=== PATIENT | male | born 1940 | race Caucasian/White ===

== ENCOUNTER 2021-04-05 10:03 | Emergency (ER) | payer OTHER ==
[2021-04-05] MEDS ORDERED: FENTANYL CITR 100 MCG/2 ML ONE ×2 (10:30→11:29)
--- NOTE | 2021-04-05 12:17 | RAD REPORT ---
EXAM DESCRIPTION: RAD - Hip Left 2 View - 04/05/2021 11:25 am CLINICAL HISTORY: Left hip pain status post injury FINDINGS: Avulsion fracture involves the lesser trochanter the left femur. An intertrochanteric fra cture extends into the greater trochanter with varus angulation present at the fracture site. No dislocation Plate and screws affix an old mid left femoral fracture
--- NOTE | 2021-04-05 12:17 | RAD REPORT ---
EXAM DESCRIPTION: RAD - Femur Left - 04/05/2021 11:25 am CLINICAL HISTORY: Left leg pain FINDINGS: Avulsion fracture involves the lesser trochanter the left femur. An intertrochanteric fracture exten ds into the greater trochanter with varus angulation present at the fracture site. No dislocation Plate and screws affix an old mid left femoral fracture The patella appears to be dislocated medially. If clinically indicated dedicated plain films of the l eft knee could be obtained for further evaluation .
[2021-04-05 12:58] LABS: Absolute Lymphocytes (CBC) 0.8 K/uL (0.7-4.9); Basophils % 0.4 % (0-1.3); Hematocrit 39.2 % (39.6-49.0); Lymphocytes % 5.6 % (15.3-44.8); RBC Red Blood Cell Count 4.23 M/uL (4.33-5.43)
[2021-04-05 13:02] LABS: Protime INR 0.97
[2021-04-05 13:08] LABS: BUN Blood Urea Nitrogen 9 mg/dL (7-18); Bicarbonate 26 mmol/L (21-32); Glucose Level 115 mg/dL (74-106); Potassium 3.6 mmol/L (3.5-5.1); Sodium Level 139 mmol/L (136-145)
[2021-04-05] MEDS ORDERED: MORPHINE 4 MG/ML SYR ONE ×2 (13:44→16:21)
--- NOTE | 2021-04-05 14:47 | RAD REPORT ---
EXAM DESCRIPTION: RAD - Chest Single View - 04/05/2021 2:42 pm CLINICAL HISTORY: preop COMPARISON: CHEST SINGLE VIEW dated 12/28/2014 FINDINGS: Lines: None. Lungs: No evidence of edema or pneumonia. Pleural: No significant pleural effusions or pneumothorax. Cardiac: The heart size is within normal limits. Bones: No acute fractures. Other: IMPRESSION: No acute cardiopulmonary disease.
--- NOTE | 2021-04-05 16:02 | EDPHYS ---
Physician Documentation [facility] Name: Dhaval Huertas Age: 80 yrs Sex: Male : 1940 Arrival Date: 04/05/2021 Time: 10:11 Bed 6 Private MD: ED Physician Yifan Phoenix HPI: 04/05 14:49 This 80 yrs old Male presents to ER via EMS with complaints of Hip Pain. kb 14:55 The patient or guardian reports decreased range of motion, an injury, pain. that kb occurred at home, sustained from a fall, while walking, There is no obvious deformity, The patient is able to ambulate with assistance. The patient is able to bear partial body weight. There is no radiation of the patient's discomfort. The complaints affect the left hip. Onset: The symptoms/episode began/occurred yesterday. Modifying factors: The symptoms are alleviated by nothing, the symptoms are aggravated by nothing. Associated signs and symptoms: Loss of consciousness: the patient experienced no loss of consciousness, Pertinent positives: None. Severity of symptoms: At their worst the symptoms were moderate, in the emergency department the symptoms are unchanged. The patient has not experienced similar symptoms in the past. The patient has not recently seen a physician. Pt fell in restroom yesterday and has had left hip pain since then. . Historical: - Allergies: 10:23 No Known Drug Allergies; tw2 - Home Meds: 10:23 amlodipine 10 mg tab 1 tab once daily [Active]; tramadol 50 mg Oral tab 1 tab every 4 tw2 hours [Active]; tamsulosin 0.4 mg oral cap 1 cap once daily [Active]; bupropion HCl 300 mg Oral Tb24 1 tab once daily [Active]; - PMHx: 10:23 Hypertensive disorder; tw2 - Immunization history:: Adult Immunizations. - Social history:: Smoking status: Patient reports the use of cigarette tobacco products, cigars, Patient uses alcohol, on a daily basis. "3 beers a day". ROS: 14:54 Constitutional: Negative for fever, chills, and weight loss. kb 14:54 MS/extremity: Positive for pain, of the left hip. 14:54 All other systems are negative. Exam: 14:54 Constitutional: This is a well developed, well nourished patient who is awake, alert, kb and in no acute distress. Head/Face: Normocephalic, atraumatic. ENT: Moist Mucous membranes Respiratory: Respirations even and unlabored. No increased work of breathing. Talking in full sentences Abdomen/GI: Soft, non-tender. No distention Back: No spinal tenderness. No costovertebral tenderness. Full range of motion. Skin: Warm, dry with normal turgor. Normal color. Neuro: Awake and alert, GCS 15, oriented to person, place, time, and situation. Moves all extremities. Normal gait. Psych: Awake, alert, with orientation to person, place and time. Behavior, mood, and affect are within normal limits. 14:54 Musculoskeletal/extremity: Extremities: grossly normal except: noted in the left hip: pain, tenderness, ROM: limited active range of motion, in the left hip, Circulation is intact in all extremities. Sensation intact. Weight bearing: can bear weight with assistance only, uses crutches. 15:56 ECG was reviewed by the Attending Physician. kb Vital Signs: 10:22 BP 136 / 83; Pulse 86; Resp 17; Temp 99(O); Pulse Ox 98% on R/A; Weight 79.38 kg (R); tw2 Height 6 ft. 3 in. (190.50 cm); Pain 5/10; 10:48 BP 117 / 74; Pulse 89; Resp 17; Pulse Ox 100% ; Pain 2/10; jh6 11:56 BP 147 / 87; Pulse 89; Resp 17; Pulse Ox 98% on R/A; tw2 13:14 BP 159 / 83; Pulse 78; Resp 18; Pulse Ox 96% on R/A; Pain 6/10; jh6 14:43 BP 129 / 78; Pulse 84; Resp 17; Pulse Ox 95% on R/A; tw2 16:00 BP 124 / 78; Pulse 85; Resp 17; Pulse Ox 95% on R/A; tw2 17:24 BP 131 / 78; Pulse 83; Resp 18; Pulse Ox 98% ; Pain 6/10; jh6 10:22 Body Mass Index 21.87 (79.38 kg, 190.50 cm) tw2 MDM: 10:17 Patient medically screened. kb 12:41 Physician consultation: Willie Wilson MD was called at 12:30, voicemail left. kb 13:33 Data reviewed: vital signs, nurses notes. Data interpreted: Pulse oximetry: on room air kb is 96 %. Interpretation: normal. Counseling: I had a detailed discussion with the patient and/or guardian regarding: the historical points, exam findings, and any diagnostic results supporting the discharge/admit diagnosis, radiology results, the need for further work-up and treatment in the hospital. Physician consultation: Willie Wilson MD was called at 13:25, . 13:36 Physician consultation: Wlilie Wilson MD was contacted at 13:36, regarding consult, kb patient's condition, after a discussion of the case, a recommendation for transfer for higher level of care is made. 14:57 Counseling: I had a detailed discussion with the patient and/or guardian regarding: the kb need to transfer to another facility. 16:00 ED course: Dr Garcia, ortho at [facility], accepts pt for transfer. kb 12 12:28 Order name: CBC with Diff; Complete Time: 13:05 kb 04/05 12:28 Order name: Basic Metabolic Panel; Complete Time: 13:09 kb 04/05 10:17 Order name: Hip Left 2 View XRAY; Complete Time: 12:18 kb 04/05 12:28 Order name: Protime (+inr); Complete Time: 13:05 kb 1208 12:28 Order name: Ptt, Activated; Complete Time: 13:05 kb 1208 12:53 Order name: COVID-19 SARS RT PCR (Document "Date of Onset" if Symptomatic); Complete iw Time: 14:07 04/05 10:17 Order name: Femur Left XRAY; Complete Time: 12:18 kb 04/05 12:28 Order name: EKG; Complete Time: 12:29 kb 04/05 12:28 Order name: EKG - Nurse/Tech; Complete Time: 12:53 kb 04/05 12:28 Order name: Chest Single View XRAY; Complete Time: 14:49 kb EC:56 Rate is 84 beats/min. Rhythm is regular. Left axis deviation noted. VT interval is kb normal at 182 msec. QRS interval is normal at 104 msec. QT interval is normal at 364 msec. Administered Medications: 10:34 Drug: fentaNYL (PF) 25 mcg Route: IVP; Site: right antecubital; 6 10:40 Follow up: Response: Pain is decreased jh6 11:21 Follow up: Response: Pain is decreased jh6 11:32 Drug: fentaNYL (PF) 25 mcg Route: IVP; Site: right antecubital; jh6 11:42 Follow up: Response: Pain is decreased jh6 13:47 Drug: morphine 4 mg Route: IVP; Site: right antecubital; jh6 16:22 Follow up: Response: No adverse reaction; Pain is unchanged, physician notified tw2 16:26 Drug: morphine 4 mg {Note: RASS 0.} Route: IVP; Site: right antecubital; tw2 17:26 Follow up: Response: Pain is decreased jh6 Disposition: 22:37 Co-signature as Attending Physician, Yifan Phoenix MD I agree with the assessment and sp3 plan of care. Disposition Summary: 04/05/21 16:02 Transfer Ordered Transfer Location: [facility] Reason: Higher level of care kb Condition: Stable kb Problem: new kb Symptoms: are unchanged kb Accepting Physician: Radha(04/05/21 17:26) jh6 Diagnosis - Intertrochanteric fracture of left femur kb Forms: - Medication Reconciliation Form kb - SBAR form kb Signatures: Dispatcher [employer] EDMS Diane Eagle FNP-C FNP-Iliana Mcallister RN RN tw2 Yifan Phoenix MD MD sp3 Lori Gaitan RN RN jh6 Corrections: (The following items were deleted from the chart) 13:38 13:36 Physician consultation: Willie Wilson MD was contacted at 13:36, regarding kb consult, patient's condition, and will see patient in ED, kb 14:56 14:54 Musculoskeletal/extremity: Extremities: grossly normal except: noted in the left kb hip: pain, tenderness, ROM: limited active range of motion, in the left hip, Circulation is intact in all extremities. Sensation intact. Weight bearing: is unable to bear weight, kb 14:57 14:55 that occurred at home, sustained from a fall, while walking, There is no obvious kb deformity, The patient is not able to ambulate. Patient is not able to bear weight. There is no radiation of the patient's discomfort. kb 16:02 16:00 ED course: Dr Maya, ortho at [facility], accepts pt for transfer. kb kb 17:26 16:02 Radha kb jh6
--- NOTE | 2021-04-05 16:02 | ER ---
Nurse's Notes [facility] Name: Dhaval Huertas Age: 80 yrs Sex: Male : 1940 Arrival Date: 04/05/2021 Time: 10:11 Bed 6 Private MD: Diagnosis: Intertrochanteric fracture of left femur Presentation: 04/05 10:16 Chief complaint: EMS states: left hip pain after falling in bathroom yesterday. iw Coronavirus screen: At this time, the client does not indicate any symptoms associated with coronavirus-19. Ebola Screen: Patient negative for fever greater than or equal to 101.5 degrees Fahrenheit, and additional compatible Ebola Virus Disease symptoms Patient denies exposure to infectious person. Patient denies travel to an Ebola-affected area in the 21 days before illness onset. No symptoms or risks identified at this time. Initial Sepsis Screen: Does the patient meet any 2 criteria? No. Patient's initial sepsis screen is negative. Does the patient have a suspected source of infection? No. Patient's initial sepsis screen is negative. Risk Assessment: Do you want to hurt yourself or someone else? Patient reports no desire to harm self or others. Onset of symptoms was April 04, 2021. 10:16 Method Of Arrival: EMS: [id number] 10:16 Acuity: JOAQUIN 3 iw Triage Assessment: 10:16 General: Appears in no apparent distress. uncomfortable, Behavior is calm, cooperative, tw2 appropriate for age. Pain: Complains of pain in left leg. Neuro: Level of Consciousness is awake, alert, obeys commands, Oriented to person, place, time, situation. Cardiovascular: Patient's skin is warm and dry. Respiratory: Airway is patent Respiratory effort is even, unlabored, Respiratory pattern is regular. Musculoskeletal: pt reports RIGHT leg length shortened d/t previous condition. pt uses crutch for ambulation. pt c/o pain to LEFT hip and leg today. Historical: - Allergies: 10:23 No Known Drug Allergies; tw2 - Home Meds: 10:23 amlodipine 10 mg tab 1 tab once daily [Active]; tramadol 50 mg Oral tab 1 tab every 4 tw2 hours [Active]; tamsulosin 0.4 mg oral cap 1 cap once daily [Active]; bupropion HCl 300 mg Oral Tb24 1 tab once daily [Active]; - PMHx: 10:23 Hypertensive disorder; tw2 - Immunization history:: Adult Immunizations. - Social history:: Smoking status: Patient reports the use of cigarette tobacco products, cigars, Patient uses alcohol, on a daily basis. "3 beers a day". Screenin:21 Abuse screen: Denies threats or abuse. Nutritional screening: No deficits noted. tw2 Tuberculosis screening: No symptoms or risk factors identified. Fall Risk Ambulatory Aid- Crutches/Cane/Walker (15 pts). Assessment: 10:31 Reassessment: see triage assessment. tw2 10:46 Reassessment: Patient is alert, oriented x 3, equal unlabored respirations, skin jh6 warm/dry/pink. Patient states symptoms have improved. Pain: Complains of pain in left hip Pain currently is 3 out of 10 on a pain scale. Quality of pain is described as aching, gnawing, Pain began suddenly, Is continuous, Alleviated by repositioning, relaxation, Aggravated by increased activity, repositioning, Also complains of Current management is with fentanyl iv. Musculoskeletal: Reports pain in pelvis. 11:15 Reassessment: Patient and/or family updated on plan of care and expected duration. Pain jh6 level reassessed. pt states that after x rays completed he has had increased pain to l hip area. rates pain 8 on 1-10 scale. Patient states symptoms have not improved. Pain: Pain currently is 8 out of 10 on a pain scale. 11:42 Reassessment: Patient is alert, oriented x 3, equal unlabored respirations, skin jh6 warm/dry/pink. reports that the pain meds have helped and pt is resting now Patient states symptoms have improved. 12:26 Reassessment: provider at bedside going over results with pt at this time. tw2 14:20 Reassessment: Patient and/or family updated on plan of care and expected duration. Pain tw2 level reassessed. Patient is alert, oriented x 3, equal unlabored respirations, skin warm/dry/pink. 15:22 Reassessment: Patient and/or family updated on plan of care and expected duration. Pain tw2 level reassessed. Patient is alert, oriented x 3, equal unlabored respirations, skin warm/dry/pink. 16:22 Reassessment: pt supervisor inspection department light c/o pain. provider notified and medicated per order. tw2 Vital Signs: 10:22 BP 136 / 83; Pulse 86; Resp 17; Temp 99(O); Pulse Ox 98% on R/A; Weight 79.38 kg (R); tw2 Height 6 ft. 3 in. (190.50 cm); Pain 5/10; 10:48 BP 117 / 74; Pulse 89; Resp 17; Pulse Ox 100% ; Pain 2/10; jh6 11:56 BP 147 / 87; Pulse 89; Resp 17; Pulse Ox 98% on R/A; tw2 13:14 BP 159 / 83; Pulse 78; Resp 18; Pulse Ox 96% on R/A; Pain 6/10; jh6 14:43 BP 129 / 78; Pulse 84; Resp 17; Pulse Ox 95% on R/A; tw2 16:00 BP 124 / 78; Pulse 85; Resp 17; Pulse Ox 95% on R/A; tw2 17:24 BP 131 / 78; Pulse 83; Resp 18; Pulse Ox 98% ; Pain 6/10; jh6 10:22 Body Mass Index 21.87 (79.38 kg, 190.50 cm) tw2 ED Course: 10:11 Patient arrived in ED. iw 10:13 Bed in low position. Call light in reach. Side rails up X2. Pulse ox on. NIBP on. Warm tw2 blanket given. 10:15 Iliana Alegria, YARELY is Primary Nurse. tw2 10:16 [facility]C [facility] kb 10:16 Yifan Phoenix MD is Attending Physician. kb 10:18 Triage completed. iw 10:21 Arm band placed on. tw2 10:34 Maintain EMS IV. Dressing intact. Good blood return noted. Site clean \\T\\ dry. Gauge \\T\\ tw 2 site: 20 g RIGHT AC. 11:25 Hip Left 2 View XRAY In Process Unspecified. EDMS 11:25 Femur Left XRAY In Process Unspecified. EDMS 14:42 Chest Single View XRAY In Process Unspecified. EDMS 15:34 initiated transfer to [facility]. bd 17:24 No provider procedures requiring assistance completed. jh6 17:24 Patient transferred, IV remains in place. tw2 Administered Medications: 10:34 Drug: fentaNYL (PF) 25 mcg Route: IVP; Site: right antecubital; 6 10:40 Follow up: Response: Pain is decreased 6 11:21 Follow up: Response: Pain is decreased [facility] 11:32 Drug: fentaNYL (PF) 25 mcg Route: IVP; Site: right antecubital; 6 11:42 Follow up: Response: Pain is decreased [facility] 13:47 Drug: morphine 4 mg Route: IVP; Site: right antecubital; 6 16:22 Follow up: Response: No adverse reaction; Pain is unchanged, physician notified tw2 16:26 Drug: morphine 4 mg {Note: RASS 0.} Route: IVP; Site: right antecubital; tw2 17:26 Follow up: Response: Pain is decreased [facility] Outcome: 16:02 ER care complete, transfer ordered by MD. wu 17:24 Transferred by ground EMS to [facility], to other acute care facility: [address] 17:24 Condition: stable 17:24 Instructed on the need for transfer. 17:26 Patient left the ED. [facility] Signatures: Dispatcher [employer] EDMS Diane Eagle, COMPRESSOR ASSEMBLER-C COMPRESSOR ASSEMBLER-CkShante Levin Irene, RN RN iw Iliana Alegria RN RN tw2 Lori Gaitan RN RN 6
[2021-04-05 17:34] VITALS: TEMP 99
[2021-04-05 17:43] VITALS: BP 131/78; O2SAT 98
== END 2021-04-05 17:26 | disposition short-term general hospital (02) ==
LOC: ER 10:03
DX: S72.092A Other fracture of head and neck of left femur, initial encounter for closed fracture (principal); W18.30XA Fall on same level, unspecified, initial encounter; Y93.01 Activity, walking, marching and hiking; Y92.009 Unspecified place in unspecified non-institutional (private) residence as the place of occurrence of the external cause; Z20.822 Contact with and (suspected) exposure to COVID-19; I10 Essential (primary) hypertension
CPT/HCPCS: 93005; 85025; 80048; 36415; 85610; 85730; 71045; 73502; 73552; 96375; 96374; 99285; U0003; J3010 ×2

== ENCOUNTER 2023-04-17 12:20 | Inpatient (IN) | payer OTHER ==
--- OUTSIDE RECORDS SUMMARY | 2023-04-17 12:23 | XMS REPORT | Continuity of Care Document ---
Author Name Unknown Address [address] [place] [address] [facility] thconnect Address [address] [place] [address] Care Team Providers Care Filer Helper Name Role Phone SEBASTIAN NGUYEN Attending Clinician Unavailable Loraine Carrington MA Attending Clinician Unavailable Payers Payer Name Policy Type Policy Number Effective Date Expirati on Date Source [employer]ARE ADVANTAGE [facility] [place] [place] [id number] 2010 00:00:00 Problems Condition Name Condition Details Condition Category Status Onset Date Resolution Date Last Treatment Date Treating Clinician Comments Source Closed displaced intertroch anteric fracture of left femur with routine healing Closed displaced intertroch anteric fracture of left femur with routine healing Disease Active 05-16 00:00: 00 [facility] Other fracture of shaft of left femur, subsequent encounter for closed fracture with routine healing Other fracture of shaft of left femur, subsequent encounter for closed fracture with routine healing Disease Active 05-16 00:00: 00 [facility] Social History Social Habit Start Date Stop Date Quantity Comments Source Exposure to SARS-CoV-2 (event) Not sure [facility] Sex Assigned At 1940 00:00:00 1940 00:00:00 [facility] Smoking Status Start Date Stop Date Source Tobacco smoking consumption unknown [facility] Encounters Start Date/Time End Date/Time Encounter Type Admission Type Attending Clinicians Care Facility Care Department Encounter ID Source 2021-07-06 01:05:26 Outpatient SEBASTIAN NGUYEN [facility] [id number] [facility] 2021-05-18 15:15:02 Outpatient [facility] [id number] [facility] 2021-05-24 13:15:00 2021-05-24 14:29:46 Office Visit Sebastian Nguyen [facility] [id number] [id number] [facility] 2021-05-08 00:00:00 2021-05-08 00:00:00 Telephone Loraine Carrington Diana [facility] [id number] [id number] [facility]
[2023-04-17] MEDS ORDERED: HYDROCODONE/APAP 5/325 MG TAB ONE (12:49)
[2023-04-17 12:59] LABS: Absolute Lymphocytes (CBC) 0.5 K/uL (0.7-4.9); Lymphocytes % 3.2 % (15.3-44.8); MCV 91.4 fL (80-100); MPV 8.4 fL (7.6-11.3); Platelets 372 thou/uL (152-406); RBC Red Blood Cell Count 4.16 M/uL (4.33-5.43)
[2023-04-17 13:34] LABS: Platelet Estimate ADEQ
[2023-04-17 13:35] LABS: Blood Morphology Comment NOT SEEN (NOT SEEN)
--- NOTE | 2023-04-17 13:45 | RAD REPORT ---
EXAM DESCRIPTION: Sana Single View04/17/2023 1:13 pm CLINICAL HISTORY: Chest pain COMPARISON: 2020 FINDINGS: The lungs appear clear of acute infiltrate. The heart is mildly enlarged IMPRESSION: No acute abnormalities displayed
[2023-04-17 14:07] LABS: Specific Gravity 1.017 (1.005-1.030); Urine Bacteria None Seen /HPF (<20); Urine Bilirubin NEGATIVE (Negative); Urine Blood Negative (Negative); Urine Clarity Clear (Clear); Urine Color Yellow (Yellow); Urine Glucose NEGATIVE (Negative); Urine Protein NEGATIVE (Negative); Urine RBC <5 /HPF (None Seen); Urine Urobilinogen Normal (Normal); Urine pH 5.5 (5.0-7.0)
[2023-04-17 14:12] LABS: Albumin 3.2 g/dL (3.4-5.0); Bilirubin Total 0.6 mg/dL (0.2-1.0); Potassium 3.2 mEq/L (3.5-5.1); Protein, Total 6.6 g/dL (6.4-8.2); Troponin High Sensitivity 29.4 pg/mL (<58.9)
--- NOTE | 2023-04-17 14:13 | RAD REPORT ---
EXAM DESCRIPTION: CT - Head Brain Wo Cont - 04/17/2023 1:59 pm CLINICAL HISTORY: Left-sided weakness. Facial droop COMPARISON: 2014 TECHNIQUE: Computed axial tomography of the head was obtained. IV contrast was not requested. All CT scans are performed using dose optimization technique as appropriate and may include automated exposure control or mA/KV adjustment according to patient size. FINDINGS: An intracranial bleed is not seen The ventricles are normal in caliber No extra-axial fluid collection is noted. Small low-density within cerebellar hemispheres may be old lacunar infarcts Fluid within the sinuses/ mastoids is not seen. IMPRESSION: No acute intracranial abnormality is seen If patient's symptoms persist MRI of the brain would be recommended
--- NOTE | 2023-04-17 14:30 | RAD REPORT ---
EXAM DESCRIPTION: Emmett Angio04/17/2023 2:01 pm CLINICAL HISTORY: Left-sided weakness. Facial droop COMPARISON: None TECHNIQUE: 100 cc Isovue [address] angiogram of the neck was obtained. 3D MIPS reconstruction performed. All CT scans are performed using dose optimization technique as appropriate and may include automated exposure control or mA/KV adjustment according to patient size. FINDINGS: Mild plaque is present within common carotid, internal carotid and external carotid arteri es bilaterally Left vertebral artery is dominant. No abnormality noted Right vertebral artery is hypoplastic. Portions of the distal right vertebral artery are unopacified. Postsurgical changes cervical spine with prominent anterior osteophytes IMPRESSION: Portions of the distal right vertebral artery are unopacified. 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 However, an acute dissection could result in this appearance. MRI brain may be helpful for further evaluation [place] crieria Mild stenosis 0 to 49 % Moderate stenosis 50-69% Severe stenosis 70-99%
--- NOTE | 2023-04-17 14:30 | RAD REPORT ---
EXAM DESCRIPTION: CTHead angio04/17/2023 2:00 pm CLINICAL HISTORY: Left-sided weakness. Facial droop COMPARISON: None TECHNIQUE: 100 cc Isovue [address] angiogram of the head was obtained. 3D MIPS reconstruction performed. All CT scans are performed using dose optimization technique as appropriate and may include automated exposure control or mA/KV adjustment according to patient size. FINDINGS: The basilar, anterior cerebral, middle cerebral and posterior cerebral arteries do not dem onstrate a significant stenosis Mild calcified plaque distal internal carotid arteries An aneurysm is not seen No large vessel occlusion IMPRESSION: No significant abnormality is displayed
[2023-04-17] MEDS ORDERED: NA CHLORIDE 0.9% 250 ML ONE ×2 (14:39→17:07)
[2023-04-17] MEDS ORDERED: VANCOMYCIN 1 GM/VIAL ONE (14:39)
[2023-04-17] MEDS ORDERED: NA CHLORIDE 0.9% 1,000 ML ONE ×2 (14:39→17:07)
--- NOTE | 2023-04-17 14:46 | RAD REPORT ---
EXAM DESCRIPTION: MRI - Brain Wo Cont - 04/17/2023 2:35 pm CLINICAL HISTORY: Left-sided weakness. Facial droop COMPARISON: Head CT 04/17/2023 TECHNIQUE: Axial, sagittal, and coronal magnetic resonance images of the brain were obtained. FINDINGS: Small areas increased signal within the cerebellum bilaterally may represent old lacunar i nfarctions. Diffusion-weighted/ADC mapping does not reveal evidence of acute infarction. The ventricles are normal caliber. An extra-axial fluid collection is not noted. Fluid within the sinuses/mastoids is not seen IMPRESSION: No acute intracranial abnormality noted
--- NOTE | 2023-04-17 15:05 | ER ---
Nurse's Notes [facility] Name: Dhaval Huertas Age: 82 yrs Sex: Male : 1940 Arrival Date: 04/17/2023 Time: 12:20 Bed 19 Private MD: Diagnosis: Cellulitis of right lower limb Presentation: 04/17 12:33 Chief complaint: EMS states: toned out for stroke symptoms from a week ago that haven't me1 resolved. c/o left sided weakness, left sided facial droop that happened a week ago. 22 g to right hand. Coronavirus screen: Vaccine status: Patient reports being unvaccinated. Ebola Screen: No symptoms or risks identified at this time. Initial Sepsis Screen: Does the patient meet any 2 criteria?. Initial Sepsis Screen: Does the patient meet any 2 criteria? No. Patient's initial sepsis screen is negative. Does the patient have a suspected source of infection? Yes: Productive cough/pneumonia Dysuria/Frequency/Urgency/UTI. Risk Assessment: Do you want to hurt yourself or someone else? Patient reports no desire to harm self or others. Onset of symptoms is unknown. 12:33 Method Of Arrival: EMS ms1 12:33 Acuity: JOAQUIN 3 me1 12:56 An acute neurological deficit is present. The charge nurse has been notified. me1 Pre-hospital glucose is not applicable to this patient. Triage Assessment: 12:39 The onset of the patients symptoms was more than six hours ago. The onset of the me1 patients symptoms was at an unknown time. General: Appears uncomfortable, unkempt, well developed, well nourished, Behavior is cooperative, appropriate for age, agitated. Pain: Complains of pain in back Pain does not radiate. Pain currently is 10 out of 10 on a pain scale. Quality of pain is described as aching, Pain began suddenly, Is continuous. Neuro: Level of Consciousness is awake, alert, obeys commands, Oriented to person, place, time, situation, Appropriate for age Reports weakness in left arm and left leg since a week ago. Cardiovascular: Capillary refill < 3 seconds Clubbing of nail beds is absent Patient's skin is warm and dry. Respiratory: Airway is patent Respiratory effort is even, unlabored, Respiratory pattern is regular, symmetrical. Musculoskeletal: Reports weakness in left arm and left leg since a week ago. 12:39 Derm: scattered small scabs to BLE. me1 Stroke Activation: Symptom onset > 6 hours Physician: Stroke Attending; Name: ; Notified At: ; Arrived At: Physician: Chief Stroke Resident; Name: ; Notified At: ; Arrived At: Physician: Stroke Resident; Name: ; Notified At: ; Arrived At: Physician: ED Attending; Name: ; Notified At: ; Arrived At: Physician: ED Resident; Name: ; Notified At: ; Arrived At: Historical: - Allergies: 12:39 No Known Drug Allergies; me1 - PMHx: 12:39 Hypertensive disorder; Chronic obstructive lung disease; Chronic back pain; me1 - Immunization history:: Adult Immunizations unknown. - Social history:: Smoking status: Patient reports the use of cigarette tobacco products, cigars. Screenin:44 [facility] ED Fall Risk Assessment (Adult) History of falling in the last 3 months, me1 including since admission No falls in past 3 months (0 pts) Confusion or Disorientation No (0 pts) Intoxicated or Sedated No (0 pts) Impaired Gait Yes (1 pt) Mobility Assist Device Used Yes (1 pt) Altered Elimination Yes (1 pt) Score/Fall Risk Level 0 - 2 = Low Risk Maintained a safe environment, Provided non-skid footwear, Hourly rounding (assess needs \T\ fall precautionary measures) done, Used ambulatory aids as needed (educated on \T\ assisted with). Abuse screen: Denies threats or abuse. Nutritional screening: No deficits noted. Tuberculosis screening: No symptoms or risk factors identified. Assessment: 12:44 General: See triage assessment.. me1 13:00 VAN Scoring:. Maryann Swallow Protocol Exclusion Criteria: Unable to remain alert for me1 testing: Yes NPO for medical/surgical reason by provider order No Head-of-bed restricted <30 degrees Yes Tracheostomy tube present No No thin liquids due to preexisting dysphagia/baseline modified diet thickened liquids No Exclusion Criteria Result: Proceed Brief Cognitive Screen What is your name? Normal, Where are you right now? Normal, What year is it? Normal. Oral Mechanism Examination Facial Symmetry: Normal, Motion: Normal, Lip Closure: Normal, Oral Mechanism Result: Normal. 3 oz Water Swallow Challenge: Result: PASS. 13:02 TNKase (Tenecteplase) Screening: Indications: Definite evidence of stroke, ischemic, me1 embolic, or hypertensive: Yes. Treatment will start within 4.5 hours onset of symptoms: No. No evidence of intracranial hemorrhage or CT of head and no evidence of peripheral hemorrhage or recent CVA: Contraindications: Other: stroke symptoms began a week ago. Vital Signs: 12:33 BP 112 / 76; Pulse 84; Resp 18; Temp 98.4(O); Pulse Ox 94% on R/A; Weight 86.18 kg; me1 Height 6 ft. 0 in. ; Pain 8/10; 13:00 BP 111 / 76; Pulse 77; Resp 19; Pulse Ox 97% on R/A; me1 13:30 BP 121 / 104; Pulse 71; Resp 18; Pulse Ox 96% on R/A; me1 14:45 BP 127 / 106; Pulse 75; Resp 17; Pulse Ox 96% on R/A; me1 15:01 BP 118 / 79; Pulse 75; Resp 19; Pulse Ox 94% on R/A; me1 15:30 BP 113 / 62; Pulse 75; Resp 20; Pulse Ox 96% on R/A; me1 16:00 BP 102 / 74; Pulse 78; Resp 20; Pulse Ox 95% on R/A; me1 16:45 BP 99 / 68; Pulse 80; Resp 17; Pulse Ox 93% on R/A; me1 17:15 BP 112 / 72; Pulse 72; Resp 19; Pulse Ox 97% ; me1 18:02 BP 90 / 55; Pulse 66; Resp 18; Pulse Ox 96% on R/A; me1 18:02 BP 94 / 54; Pulse 66; Resp 19; Pulse Ox 95% on R/A; me1 12:33 Body Mass Index 25.77 (86.18 kg, 182.88 cm) me1 12:33 Pain Scale: Adult ms1 NIH Stroke Scale Scores: 13:00 NIHSS Score: 13 ms1 ED Course: 12:27 Patient arrived in ED. me1 12:35 Sami Johnson MD is Attending Physician. ec2 12:39 Triage completed. me1 12:39 Arm band placed on Patient placed in an exam room. me1 12:44 Patient has correct armband on for positive identification. Bed in low position. Call ms1 light in reach. Side rails up X2. Provided Education on: POC. Verbalized understanding. . 12:44 No provider procedures requiring assistance completed. me1 12:44 Maintain EMS IV. Dressing intact. Good blood return noted. Site clean \T\ dry. Gauge \T\ me 1 site: 22 g Right hand. . 12:52 CMP Sent. me1 12:52 CBC with Diff Sent. me1 12:52 Troponin HS Sent. me1 13:13 Radiology exam delayed due to IV insertion attempt and/or patient not having ls3 appropriate IV at this time. 13:15 CXR XRAY In Process Unspecified. EDMS 13:30 Brissa Vizcaino, YARELY is Primary Nurse. me1 13:44 UAM Sent. me1 14:01 CT Head Brain wo Cont In Process Unspecified. EDMS 14:02 CT Head Angio In Process Unspecified. EDMS 14:03 CT Neck Angio In Process Unspecified. EDMS 14:37 MRI - Brain Wo Cont In Process Unspecified. EDMS 15:04 Cammy Whitmore MD is Hospitalizing Provider. ec2 17:02 Lactate w/ 2H reflex if indic. Sent. me1 12 00:00 Delgado cath inserted, using sterile technique, 16 Fr., by ms, returned letitia urine. oe Patient tolerated well. 06:57 Patient admitted, IV remains in place. jw7 Administered Medications: 04/17 12:51 Drug: HYDROcodone-acetaminophen PO 5 mg-325 mg 1 tabs PO once Route: PO; me1 14:37 Follow up: Response: No adverse reaction me1 15:03 Follow up: Response: No adverse reaction me1 15:07 Follow up: Response: Pain is unchanged, physician notified me1 14:45 Drug: NS 0.9% IV 1000 ml IV at 1 bolus Per protocol; 1000 mL bolus Route: IV; Rate: 1 me1 bolus; Site: right forearm; 16:57 Follow up: IV Status: Completed infusion me1 14:45 Drug: vancoMYCIN IVPB 1 grams IVPB once over 2 hrs Route: IVPB; Infused Over: 2 hrs; me1 Site: right forearm; 16:57 Follow up: Response: No adverse reaction; IV Status: Completed infusion me1 Medication: 12:44 VIS not applicable for this client. me1 Outcome: 15:05 Decision to Hospitalize by Provider. ec2 04/18 06:56 Ad[facility]. jw7 Condition: stable Instructed on the need for admit, Demonstrated understanding of instructions, 17:01 Patient left the ED. bp NIH Stroke Scale - NIH Stroke Score Date: 04/17/2023 Time: 13:00 Total Score = 13 10. Dysarthria (speech clarity - read or repeat words) - 0(Normal) 11. Extinction and Inattention (visual/tactile/auditory/spatial/personal) - 0(No abnormality) 1a. Level of Consciousness (LOC) - 0(Alert) 1b. Level of Consciousness (LOC) (Month \T\ Age) - 0(Both) 1c. LOC Commands (Open \T\ Closes Eyes/Comber Operator) - 0(Both) 2. Best Gaze (Lateral Gaze Paresis) - 0(Normal) 3. Visual Field Loss - 0(No visual loss) 4. Facial Palsy - 0(Normal) 5a. Left Arm: Motor (10-second hold) - 3(No effort against gravity) 5b. Right Arm: Motor (10-second hold) - 2(Drift, some effort against gravity) 6a. Left Leg: Motor (5-second hold - always test supine) - 3(No effort against gravity) 6b. Right Leg: Motor (5-second hold - always test supine) - 2(Drift, some effort against gravity) 7. Limb Ataxia (finger/nose \T\ heel/brambila - test with eyes open) - 2(Present in two limbs) 8. Sensory Loss (pinprick arms/legs/face) - 1(Mild to moderate loss) 9. Best Language: Aphasia (description/naming/reading) - 0(No aphasia) Initials: me1 Signatures: Dispatcher [employer] EDLester Zayas Brian, RN RN bp Katerina Dos Santos ls3 Carmen Hanson RN RN jw7 Brissa Vizcaino RN RN me1 Sami Johnson MD MD 2
--- NOTE | 2023-04-17 15:05 | EDPHYS ---
Physician Documentation [facility] Name: Dhaval Huertas Age: 82 yrs Sex: Male : 1940 Arrival Date: 04/17/2023 Time: 12:20 Bed 19 Private MD: ED Physician Sami Johnson HPI: 04/17 12:43 This 82 yrs old Male presents to ER via EMS with complaints of S/S of Possible Stroke. ec2 12:43 Patient arrives today for multiple complaints, patient with chronic back pain, ec2 generalized weakness, concern for possible left-sided weakness, unclear if this is new. Patient with chronic shortness of breath chronic cough. Patient is bedbound at baseline. Possible last known well where documented at approximately 1 week per EMS, patient unclear. . Historical: - Allergies: 12:39 No Known Drug Allergies; me1 - PMHx: 12:39 Hypertensive disorder; Chronic obstructive lung disease; Chronic back pain; me1 - Immunization history:: Adult Immunizations unknown. - Social history:: Smoking status: Patient reports the use of cigarette tobacco products, cigars. ROS: 12:43 Constitutional: as per hpi ec2 Exam: 12:43 Constitutional: GEN: NAD Head: atraumatic Eyes: EOMI Ears: External ears are ec2 normal. CV: regular rate LUNGS: no respiratory distress, scattered wheezes noted ABD: non-distended SKIN: Chronic skin breakdown noted in the bilateral lower extremities MSK: no evidence of trauma NEURO: moves all extremities equally, generally weak 15:05 Radiologist reports: as per ED course ec2 Vital Signs: 12:33 BP 112 / 76; Pulse 84; Resp 18; Temp 98.4(O); Pulse Ox 94% on R/A; Weight 86.18 kg; me1 Height 6 ft. 0 in. ; Pain 8/10; 13:00 BP 111 / 76; Pulse 77; Resp 19; Pulse Ox 97% on R/A; me1 13:30 BP 121 / 104; Pulse 71; Resp 18; Pulse Ox 96% on R/A; me1 14:45 BP 127 / 106; Pulse 75; Resp 17; Pulse Ox 96% on R/A; me1 15:01 BP 118 / 79; Pulse 75; Resp 19; Pulse Ox 94% on R/A; me1 15:30 BP 113 / 62; Pulse 75; Resp 20; Pulse Ox 96% on R/A; me1 16:00 BP 102 / 74; Pulse 78; Resp 20; Pulse Ox 95% on R/A; me1 16:45 BP 99 / 68; Pulse 80; Resp 17; Pulse Ox 93% on R/A; me1 17:15 BP 112 / 72; Pulse 72; Resp 19; Pulse Ox 97% ; me1 18:02 BP 90 / 55; Pulse 66; Resp 18; Pulse Ox 96% on R/A; me1 18:02 BP 94 / 54; Pulse 66; Resp 19; Pulse Ox 95% on R/A; me1 12:33 Body Mass Index 25.77 (86.18 kg, 182.88 cm) me1 12:33 Pain Scale: Adult nv1 NIH Stroke Scale Scores: 13:00 NIHSS Score: 13 me1 MDM: 12:40 Patient medically screened. ec2 12:43 Data reviewed: vital signs. ED course: Patient arrives today for multiple complaints ec2 including generalized weakness, possible stroke, chronic back pain. Examination remarkable for well-appearing nontoxic individual who is chronically ill-appearing however has no obvious focal deficits appreciated. Will obtain lab work, imaging, x-ray, urine studies. Currently considering anemia, dehydration, UTI, stroke. Patient will require admission given the patient's poor functional baseline.. 14:34 ED course: CBC remarkable for leukocytosis. Metabolic profile shows hyponatremia with ec2 sodium of 129, hypokalemia with potassium of 3.2, slight anion gap noted. Urine is pertinent for ketonuria. CT scan of the head shows no acute intracranial process, CT angio of the head and neck shows no acute process. Pending MRI. Chest x-ray shows no acute intrathoracic process, troponin within normal ranges. . 14:37 ED course: Patient does have leukocytosis, has skin breakdown noted in the bilateral ec2 anterior tibias, some erythema, possible cellulitis, will treat with vancomycin.. 14:54 ED course: MR brain is negative. Will admit for cellulitis. ec2 04/17 12:42 Order name: CBC with Diff; Complete Time: 14:33 ec2 04/17 12:42 Order name: CMP; Complete Time: 14:33 ec2 04/17 12:42 Order name: UAM; Complete Time: 14:33 ec2 12/20 12:42 Order name: Troponin HS; Complete Time: 14:33 ec2 04/17 13:03 Order name: Manual Differential; Complete Time: 14:33 EDMS 04/17 15:45 Order name: Lactate w/ 2H reflex if indic. EDMS 04/17 17:29 Order name: Lactate w/ 2H reflex if indic. EDMS 04/17 17:38 Order name: T4 Free EDMS 04/17 17:38 Order name: Thyroid Stimulating Hormone EDMS 04/17 23:49 Order name: CREATININE WHOLE BLOOD EDMS 04/18 04:31 Order name: CBC with Automated Diff EDMS 04/18 04:55 Order name: Basic Metabolic Panel EDMS 04/18 04:55 Order name: Phosphorus EDMS 04/18 04:55 Order name: Magnesium EDMS 04/17 12:42 Order name: CT Head Brain wo Cont; Complete Time: 14:33 ec2 04/17 12:42 Order name: CT Head Angio; Complete Time: 14:33 ec2 04/17 12:42 Order name: CT Neck Angio; Complete Time: 14:33 ec2 04/17 12:42 Order name: MRI - Brain Wo Cont; Complete Time: 14:52 ec2 04/17 12:42 Order name: CXR XRAY; Complete Time: 14:33 ec2 04/17 12:42 Order name: EKG; Complete Time: 12:43 ec2 04/17 12:42 Order name: EKG - Nurse/Tech; Complete Time: 12:52 ec2 04/17 13:09 Order name: Labs - recollect needed: recollect green top; Complete Time: 13:44 bd Administered Medications: 12:51 Drug: HYDROcodone-acetaminophen PO 5 mg-325 mg 1 tabs PO once Route: PO; me1 14:37 Follow up: Response: No adverse reaction me1 15:03 Follow up: Response: No adverse reaction me1 15:07 Follow up: Response: Pain is unchanged, physician notified me1 14:45 Drug: NS 0.9% IV 1000 ml IV at 1 bolus Per protocol; 1000 mL bolus Route: IV; Rate: 1 me1 bolus; Site: right forearm; 16:57 Follow up: IV Status: Completed infusion me1 14:45 Drug: vancoMYCIN IVPB 1 grams IVPB once over 2 hrs Route: IVPB; Infused Over: 2 hrs; me1 Site: right forearm; 16:57 Follow up: Response: No adverse reaction; IV Status: Completed infusion me1 Disposition Summary: 04/17/23 15:05 Hospitalization Ordered Notes: Hospitalization Status: Inpatient Admission ec2 Provider: Cammy Whitmore ec2 Condition: Stable ec2 Problem: an acute exacerbation ec2 Symptoms: have improved ec2 Bed/Room Type: Standard ec2 Location: Telemetry/MedSurg (Inpatient)(04/18/23 16:29) em1 Room Assignment: 214(04/18/23 16:29) em1 Diagnosis - Cellulitis of right lower limb ec2 Forms: - Medication Reconciliation Form ec2 - SBAR form ec2 - Leadership Thank You Letter ec2 NIH Stroke Scale - NIH Stroke Score Date: 04/17/2023 Time: 13:00 Total Score = 13 10. Dysarthria (speech clarity - read or repeat words) - 0(Normal) 11. Extinction and Inattention (visual/tactile/auditory/spatial/personal) - 0(No abnormality) 1a. Level of Consciousness (LOC) - 0(Alert) 1b. Level of Consciousness (LOC) (Month \T\ Age) - 0(Both) 1c. LOC Commands (Open \T\ Closes Eyes/Clock And Watch Assembler) - 0(Both) 2. Best Gaze (Lateral Gaze Paresis) - 0(Normal) 3. Visual Field Loss - 0(No visual loss) 4. Facial Palsy - 0(Normal) 5a. Left Arm: Motor (10-second hold) - 3(No effort against gravity) 5b. Right Arm: Motor (10-second hold) - 2(Drift, some effort against gravity) 6a. Left Leg: Motor (5-second hold - always test supine) - 3(No effort against gravity) 6b. Right Leg: Motor (5-second hold - always test supine) - 2(Drift, some effort against gravity) 7. Limb Ataxia (finger/nose \T\ heel/brambila - test with eyes open) - 2(Present in two limbs) 8. Sensory Loss (pinprick arms/legs/face) - 1(Mild to moderate loss) 9. Best Language: Aphasia (description/naming/reading) - 0(No aphasia) Initials: nv1 Signatures: Dispatcher [employer] EDMS Shante Ellis Rodrigo, Moshe em1 Dhaval Hernandez RN RN jb4 Dallas Abbasi RN RN ja1 Brissa Vizcaino RN RN me1 Sami Johnson MD MD ec2 Corrections: (The following items were deleted from the chart) 12:45 12:43 Patient arrives today for multiple complaints, patient with chronic back ec2 pain, generalized weakness, concern for possible left-sided weakness, unclear if this is new. Patient with chronic shortness of breath chronic cough. Patient is bedbound at baseline.. ec2 15:05 15:05 Radiologist reports: as per hpi ec2 ec2 23:33 15:05 Telemetry/MedSurg (Inpatient) ec2 jb4 23:33 15:05 ec2 jb4 04/18 12:08 12 23:33 [facility] ER HOLD jb4 em1 04/18 12:08 12 23:33 ERHOLD- jb4 em1 04/18 12:20 12:08 Telemetry/MedSurg (Inpatient) em1 ja1 12:20 12:08 214 em1 ja1 12:26 12:20 [facility] ER HOLD ja1 em1 12:26 12:20 ERHOLD- ja1 em1 12:41 12:26 Telemetry/MedSurg (Inpatient) em1 em1 12:41 12:26 214 em1 em1 16:29 12:41 [facility] ER HOLD em1 em1 16:29 12:41 ERHOLD- em1 em1
[2023-04-17] MEDS ORDERED: ACETAMINOPHEN 500 MG TAB PO PRN (15:46)
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
[2023-04-17] MEDS: NA CHLORIDE 0.9% 1,000 ML IV SCH (16:00)
[2023-04-17] MEDS: ENOXAPARIN 40 MG/0.4 ML SQ SCH (17:00)
[2023-04-17] MEDS: CEFTRIAXONE 1,000 MG in NA CHLORIDE 0.9% 50 ML IVPB SCH (17:00)
[2023-04-17] MEDS ORDERED: AZITHROMYCIN IV 500 MG in NA CHLORIDE 0.9% 250 ML IVPB SCH (17:00)
[2023-04-17] MEDS ORDERED: MORPHINE 4 MG/ML SYR ONE ×2 (17:07→21:51)
[2023-04-17] MEDS ORDERED: CEFTRIAXONE 1000 MG/VIAL ONE (17:07)
[2023-04-17] MEDS ORDERED: AZITHROMYCIN 500 MG INJ IVPB ONE (17:07)
[2023-04-17] MEDS ORDERED: ENOXAPARIN 40 MG/0.4 ML SQ ONE (17:07)
[2023-04-17] MEDS: MORPHINE 4 MG/ML SYR IV PRN ×2 (17:22→22:01)
[2023-04-17] MEDS ORDERED: POTASSIUM CL SA 10 MEQ TAB PO ONE ×2 (17:25→21:50)
[2023-04-17 17:37] LABS: Thyroid Stimulating Hormone 2.12 uIU/mL (0.358-3.740)
[2023-04-17] MEDS ORDERED: KCL 20 MEQ/100 mL IVPB 20 MEQ/100 ML BAG IV SCH (18:00)
[2023-04-17] MEDS: IPRATROPIUM BROM 0.5MG/2.5ML NEB SCH (20:35)
[2023-04-17] MEDS ORDERED: KCL 20 MEQ/100 mL IVPB 100 ML IV ONE (21:52)
[2023-04-17 23:20] VITALS: BMI 25.7
[2023-04-18] MEDS: IPRATROPIUM BROM 0.5MG/2.5ML NEB SCH ×4 (01:35→19:49)
[2023-04-18] MEDS: NA CHLORIDE 0.9% 1,000 ML IV SCH ×3 (02:00→17:20)
[2023-04-18] MEDS ORDERED: MORPHINE 4 MG/ML SYR ONE ×3 (02:06→12:43)
[2023-04-18] MEDS ORDERED: NA CHLORIDE 0.9% 1,000 ML ONE ×2 (02:06→15:33)
[2023-04-18] MEDS: MORPHINE 4 MG/ML SYR IV PRN ×4 (03:21→22:48)
[2023-04-18 04:27] LABS: Absolute Lymphocytes (CBC) 0.5 K/uL (0.7-4.9); Hematocrit 34.9 % (39.6-49.0); Lymphocytes % 4.5 % (15.3-44.8); MCV 92.3 fL (80-100); MPV 8.6 fL (7.6-11.3); Platelets 345 thou/uL (152-406); RBC Red Blood Cell Count 3.78 M/uL (4.33-5.43)
[2023-04-18 04:54] LABS: Magnesium 1.7 mg/dL (1.6-2.4); Phosphorus 2.3 mg/dL (2.5-4.9); Potassium 3.4 mEq/L (3.5-5.1)
[2023-04-18] MEDS ORDERED: ENOXAPARIN 40 MG/0.4 ML SQ ONE (07:23)
[2023-04-18] MEDS ORDERED: CEFTRIAXONE 1000 MG/VIAL ONE (07:23)
[2023-04-18] MEDS ORDERED: AZITHROMYCIN 500 MG INJ IVPB ONE (07:23)
[2023-04-18] MEDS ORDERED: NA CHLORIDE 0.9% 0 ML ONE (07:23)
[2023-04-18] MEDS ORDERED: NA CHLORIDE 0.9% 100 ML ONE (07:24)
[2023-04-18] MEDS ORDERED: MAGNESIUM SULFATE 1 gm IVPB 1 GM/100 ML BAG IV ONE ×2 (07:24→09:01)
[2023-04-18] MEDS ORDERED: KCL 20 MEQ/100 mL IVPB 100 ML IV ONE (07:25)
[2023-04-18] MEDS: CEFTRIAXONE 1,000 MG in NA CHLORIDE 0.9% 50 ML IVPB SCH (07:49)
[2023-04-18] MEDS ORDERED: VANCOMYCIN 1 GM in NA CHLORIDE 0.9% 250 ML IVPB SCH (08:00)
[2023-04-18] MEDS: ENOXAPARIN 40 MG/0.4 ML SQ SCH (08:54)
[2023-04-18] MEDS ORDERED: KCL 20 MEQ/100 mL IVPB 20 MEQ/100 ML BAG IV SCH (09:00)
[2023-04-18] MEDS ORDERED: AZITHROMYCIN IV 500 MG in NA CHLORIDE 0.9% 250 ML IVPB SCH (09:00)
[2023-04-18] MEDS: VANCOMYCIN 1.5 GM in NA CHLORIDE 0.9% 500 ML IVPB SCH ×2 (10:00→20:46)
--- NOTE | 2023-04-18 11:15 | P.PN ---
Subjective Date of Service: 04/18/23 Chief Complaint: Cellulitis of right lower limb, cough Subjective: No new changes, Improving, Doing well <Jesse Finnegancabrera - Last Filed: 04/18/23 11:16> Date of Service: 04/20/23 <Cammy Whitmore Simeon - Last Filed: 04/20/23 17:08> Review of Systems 10-point ROS is otherwise unremarkable <Pool Finneganzoya - Last Filed: 04/18/23 11:16> Physical Examination - Vital Signs Temperature: 97.4 F Blood Pressure: 108/62 Pulse: 77 Respirations: 15 Pulse Ox (%): 98 - Physical Exam General: Alert, Oriented x3 HEENT: Atraumatic, Normocephalic Neck: Supple Respiratory: Clear to auscultation bilaterally, Diminished (at the bases) Cardiovascular: No edema, Regular rate/rhythm Capillary refill: <2 Seconds Gastrointestinal: Normal bowel sounds, Soft and benign Musculoskeletal: No clubbing, No swelling Integumentary: Other (multiple wounds on the BL lower extremtities) Neurological: Normal speech, Normal tone, Normal affect - Studies Laboratory Data (last 24 hrs) 04/17/23 04/17/23 13:40 12:51 WBC 16.90 H Hgb 13.0 L Hct 38.0 L Plt Count 372 Sodium 129 L Potassium 3.2 L BUN 12 Creatinine 0.39 L Glucose 68 L Total Bilirubin 0.6 AST 83 H ALT 51 Alkaline Phosphatase 153 H <Jesse Finnegancabrera - Last Filed: 04/18/23 11:16> Assessment And Plan - Current Problems (Diagnosis) (1) COPD (chronic obstructive pulmonary disease) Current Visit: Yes Status: Chronic Plan: Bronchodilators as needed Oxygen 2 L/min via nasal cannula to keep the oxygen saturation over 92, IV antibiotics started Will continue to monitor Qualifiers: COPD type: chronic bronchitis (2) Lower extremity cellulitis Current Visit: Yes Status: Acute Plan: Multiple wounds of different stages of healing on both lower extremities Started on antibiotics Will continue to monitor Analgesics as ordered Wound care consulted Dr. Morales (3) Cellulitis of lower leg Current Visit: Yes Status: Acute (4) Chronic back pain Current Visit: Yes Status: Acute Plan: Chronic, uncontrolled Analgesics ordered as needed Fall precautions Qualifiers: Back pain location: low back pain Back pain laterality: bilateral (5) Hyponatremia Current Visit: Yes Status: Acute Plan: Sodium level improving NA 131 today. patient is alert and oriented x 3. Continue Normal saline 100 mill per hour We will continue to monitor the sodium Close monitoring (6) Hypokalemia Current Visit: Yes Status: Acute Plan: Serum potassium 3.4 will replace the potassium and recheck (7) Hypomagnesemia Current Visit: Yes Status: Acute Plan: -Low mag 1.7 today. Repleate tthe mag and repeat the labs - Plan * Will cancel and restart the home medication * CODE STATUSDNR * Dietregular * DVT prophylaxisLovenox Discharge Plan: Home Plan to discharge in: 48 Hours - Code Status/Comfort Care Code Status Assessed: Yes (full code) Code Status: Full Code Physician Review: Patient Assessed, Agree with Above Assessment and Plan Critical Care: No Time Spent Managing PTS Care (In Minutes): 35 (minutes) <Walter Finnegan - Last Filed: 04/18/23 11:16> - Plan Pt seen and examined. I agree with the note by the ICT SALES ASSISTANT. <Cammy Whitmore - Last Filed: 04/20/23 17:08>
[2023-04-18] MEDS ORDERED: IPRATROPIUM BROM 0.5MG/2.5ML ONE (12:53)
[2023-04-19] MEDS: IPRATROPIUM BROM 0.5MG/2.5ML NEB SCH ×4 (01:01→20:12)
[2023-04-19 02:48] LABS: Absolute Lymphocytes (CBC) 0.4 K/uL (0.7-4.9); Hematocrit 36.7 % (39.6-49.0); Lymphocytes % 2.6 % (15.3-44.8); MCV 92.1 fL (80-100); MPV 8.6 fL (7.6-11.3); Platelets 337 thou/uL (152-406); RBC Red Blood Cell Count 3.98 M/uL (4.33-5.43)
[2023-04-19 02:59] LABS: Magnesium 1.6 mg/dL (1.6-2.4); Phosphorus 1.7 mg/dL (2.5-4.9); Potassium 3.1 mEq/L (3.5-5.1)
[2023-04-19] MEDS ORDERED: POTASSIUM 25 MEQ EFFERV TAB PO ONE (04:57)
[2023-04-19] MEDS ORDERED: MAGNESIUM SULFATE 1 gm IVPB 1 GM/100 ML BAG IV ONE (04:59)
[2023-04-19] MEDS: POTASS/SODIUM PHOSPHATE 1 PKT POWD.PACK PO SCH ×6 (05:05→21:37)
[2023-04-19] MEDS: MORPHINE 4 MG/ML SYR IV PRN ×3 (05:05→20:18)
[2023-04-19] MEDS: NA CHLORIDE 0.9% 1,000 ML IV SCH (08:40)
[2023-04-19] MEDS: CEFTRIAXONE 1,000 MG in NA CHLORIDE 0.9% 50 ML IVPB SCH (08:40)
[2023-04-19] MEDS: ENOXAPARIN 40 MG/0.4 ML SQ SCH (08:42)
[2023-04-19] MEDS: VANCOMYCIN 1.5 GM in NA CHLORIDE 0.9% 500 ML IVPB SCH ×2 (08:51→21:38)
[2023-04-19] MEDS: ALBUTEROL 2.5 MG/3 ML NEB SOL NEB PRN (11:11)
[2023-04-19 13:05] LABS: Magnesium 1.6 mg/dL (1.6-2.4); Phosphorus 2.1 mg/dL (2.5-4.9); Potassium 3.7 mEq/L (3.5-5.1)
--- NOTE | 2023-04-19 13:12 | P.PN ---
Subjective Date of Service: 04/19/23 Chief Complaint: Cellulitis of right lower limb, cough Subjective: C/O voiced Patient is alert and orientedx3 Reporting having SOB at rest On IVF 100ml/hr Denies chest pain Will discontinue the IVF and order CXR <Walter Finnegan - Last Filed: 04/19/23 13:07> Date of Service: 04/20/23 <MacyCammy lobo Simeon - Last Filed: 04/20/23 16:57> Review of Systems 10-point ROS is otherwise unremarkable <Walter Finnegan - Last Filed: 04/19/23 13:07> Physical Examination - Vital Signs Temperature: 97.8 F Blood Pressure: 150/79 Pulse: 84 Respirations: 16 Pulse Ox (%): 96 - Physical Exam General: Alert, Oriented x3 HEENT: Atraumatic, Normocephalic Neck: Supple, 2+ carotid pulse no bruit Respiratory: Crackles/rales Cardiovascular: Regular rate/rhythm, Normal S1 S2 Capillary refill: <2 Seconds Gastrointestinal: Normal bowel sounds, Soft and benign Musculoskeletal: No clubbing, No swelling Integumentary: Other (multiple small sores on the lower extremities) Neurological: Normal speech, Normal tone, Normal affect <Walter Finnegan - Last Filed: 04/19/23 13:07> Assessment And Plan - Current Problems (Diagnosis) (1) COPD (chronic obstructive pulmonary disease) Current Visit: Yes Status: Chronic Plan: Bronchodilators as needed Oxygen 2 L/min via nasal cannula to keep the oxygen saturation over 92, IV antibiotics started Will continue to monitor CXR ordered Qualifiers: COPD type: chronic bronchitis (2) Lower extremity cellulitis Current Visit: Yes Status: Acute Plan: Multiple wounds of different stages of healing on both lower extremities Started on antibiotics Will continue to monitor Analgesics as ordered Wound care consulted Dr. Morales (3) Cellulitis of lower leg Current Visit: Yes Status: Acute (4) Chronic back pain Current Visit: Yes Status: Acute Plan: Chronic, uncontrolled Analgesics ordered as needed Fall precautions Qualifiers: Back pain location: low back pain Back pain laterality: bilateral (5) Hyponatremia Current Visit: Yes Status: Acute Plan: Sodium level improving NA 132 today. patient is alert and oriented x 3. Continue to monitor. We will continue to monitor the sodium Close monitoring (6) Hypokalemia Current Visit: Yes Status: Acute Plan: Serum potassium 3.1 will replace the potassium and recheck - Plan * Will cancel and restart the home medication * CODE STATUSDNR * Dietregular * DVT prophylaxisLovenox Physician Review: Patient Assessed, Agree with Above Assessment and Plan Critical Care: Yes Time Spent Managing PTS Care (In Minutes): 35 (minutes) <Walter Finnegan - Last Filed: 04/19/23 13:07> - Plan Pt seen and examined. I agree with the note by the UPHOLSTERY CLEANER. <Cammy Whitmore - Last Filed: 04/20/23 16:57>
--- NOTE | 2023-04-19 14:49 | RAD REPORT ---
EXAM DESCRIPTION: RADChest Single View04/19/2023 2:06 pm CLINICAL HISTORY: SOB COMPARISON: Chest Single View dated 04/17/2023; Chest Single View dated 04/05/2021; CHEST SINGLE VIEW dated 12/28/2014 TECHNIQUE: Portable AP view of the chest. FINDINGS: Hazy peripheral right midlung opacification, new since the prior exam, concerning for pneu monia. Right basal crescentic lucency, could relate to subdiaphragmatic air, there is noted that moderate ga seous distension is present in the upper abdomen. Alternatively this could relate to streaky atelecta sis adjacent to the diaphragm. Please correlate with physical exam, and consider additional in the ab domen or there is concern for abdominal free air. Stable left basilar streaky opacification favored to represent atelectasis. No pneumothorax or effus ion. The cardiomediastinal contours are unremarkable. IMPRESSION: As above.
--- NOTE | 2023-04-19 15:14 | EKG ---
Test Date: 2023-04-17 Test Time: 13:06:15 Tooling Specialist: MEASUREMENT RESULTS: Intervals: Rate: 75 GA: 188 QRSD: 108 QT: 374 QTc: 417 [place]: P: -1 GA: 188 QRS: 245 T: 70 INTERPRETIVE STATEMENTS: Normal sinus rhythm Normal ECG Compared to ECG 04/17/2023 13:02:37 Atrial premature complex(es) no longer present Fusion complex(es) no longer present Left-axis deviation no longer present Electronically Signed On 04-19-23 15:09:52 RECEIVING CLERK by Lonnie Zelaya
--- NOTE | 2023-04-19 15:15 | EKG ---
Test Date: 2023-04-17 Test Time: 13:02:37 Banquet Chef: MEASUREMENT RESULTS: Intervals: Rate: 81 MD: 114 QRSD: 180 QT: 496 QTc: 576 [place]: P: 119 MD: 114 QRS: -59 T: 34 INTERPRETIVE STATEMENTS: Poor data quality, interpretation may be adversely affected Electronically Signed On 04-19-23 15:10:07 MANAGER SPA by Lonnie Zelaya
[2023-04-19] MEDS: FUROSEMIDE 20 MG/ 2ML VIAL IV SCH (16:13)
[2023-04-19] MEDS: POTASSIUM CL SA 10 MEQ TAB PO SCH (19:23)
[2023-04-20] MEDS: IPRATROPIUM BROM 0.5MG/2.5ML NEB SCH ×4 (01:25→18:13)
[2023-04-20] MEDS: MORPHINE 4 MG/ML SYR IV PRN ×5 (01:48→23:53)
[2023-04-20 04:10] LABS: Magnesium 1.5 mg/dL (1.6-2.4); Phosphorus 2.1 mg/dL (2.5-4.9); Potassium 3.5 mEq/L (3.5-5.1)
[2023-04-20 04:18] LABS: Absolute Lymphocytes (CBC) 0.5 K/uL (0.7-4.9); Hematocrit 39.1 % (39.6-49.0); MCV 90.9 fL (80-100); MPV 8.7 fL (7.6-11.3); Platelets 295 thou/uL (152-406)
[2023-04-20] MEDS ORDERED: Magnesium Sulfate 2gm IVPB 2 G/50 ML BAG IV ONE (04:31)
[2023-04-20] MEDS ORDERED: NA CHLORIDE 0.9% 100 ML ONE (04:40)
[2023-04-20] MEDS: POTASS/SODIUM PHOSPHATE 1 PKT POWD.PACK PO SCH ×6 (04:47→21:42)
[2023-04-20] MEDS ORDERED: POTASSIUM CL SA 10 MEQ TAB PO ONE (08:00)
[2023-04-20] MEDS: ENOXAPARIN 40 MG/0.4 ML SQ SCH ×2 (09:00→10:09)
[2023-04-20] MEDS ORDERED: POTASS/SODIUM PHOSPHATE 1 PKT POWD.PACK ONE (10:01)
[2023-04-20] MEDS: FUROSEMIDE 20 MG/ 2ML VIAL IV SCH ×2 (10:07→16:54)
[2023-04-20] MEDS: POTASSIUM CL SA 10 MEQ TAB PO SCH ×2 (10:09→19:37)
[2023-04-20] MEDS: CEFTRIAXONE 1,000 MG in NA CHLORIDE 0.9% 50 ML IVPB SCH (10:10)
[2023-04-20] MEDS: VANCOMYCIN 1.5 GM in NA CHLORIDE 0.9% 500 ML IVPB SCH ×2 (10:56→20:34)
--- NOTE | 2023-04-20 12:21 | P.PN ---
Subjective Date of Service: 04/20/23 Chief Complaint: Cellulitis of right lower limb, cough Subjective: No new changes, Improving, Doing well Patient is alert and orientedx3 Improving Denies SOB or Denies chest pain <Walter Finnegan - Last Filed: 04/20/23 12:19> Date of Service: 04/30/23 <Cammy Whitmore - Last Filed: 04/30/23 18:13> Review of Systems 10-point ROS is otherwise unremarkable <Walter Finnegan - Last Filed: 04/20/23 12:19> Physical Examination - Vital Signs Temperature: 96.8 F Blood Pressure: 138/72 Pulse: 74 Respirations: 14 Pulse Ox (%): 92 - Physical Exam General: Alert, In no apparent distress HEENT: Atraumatic, Normocephalic Neck: Supple, 2+ carotid pulse no bruit Respiratory: Clear to auscultation bilaterally, Normal air movement Cardiovascular: No edema, Normal pulses Gastrointestinal: Normal bowel sounds, Soft and benign Musculoskeletal: No clubbing, No swelling Integumentary: Rash(es), Skin lesion (Lower extremities) Neurological: Normal speech, Normal tone, Normal affect <Walter Finnegan - Last Filed: 04/20/23 12:19> Assessment And Plan - Current Problems (Diagnosis) (1) COPD (chronic obstructive pulmonary disease) Status: Chronic Plan: Bronchodilators as needed Oxygen 2 L/min via nasal cannula to keep the oxygen saturation over 92, IV antibiotics started Will continue to monitor CXR ordered Qualifiers: COPD type: chronic bronchitis (2) Lower extremity cellulitis Status: Acute Plan: Multiple wounds of different stages of healing on both lower extremities Started on antibiotics Will continue to monitor Analgesics as ordered Wound care consulted Dr. Morales (3) Cellulitis of lower leg Status: Acute (4) Chronic back pain Status: Acute Plan: Chronic, uncontrolled Analgesics ordered as needed Fall precautions Qualifiers: Back pain location: low back pain Back pain laterality: bilateral (5) Hyponatremia Status: Acute Plan: Sodium level improving NA 129 today. patient is alert and oriented x 3. Continue to monitor. We will continue to monitor the sodium Close monitoring (6) Hypokalemia Status: Acute Plan: Serum potassium 3.5 will replace the potassium and recheck - Plan * CODE STATUSDNR * Dietregular * DVT prophylaxisLovenox Physician Review: Patient Assessed, Agree with Above Assessment and Plan <Walter Finnegan - Last Filed: 04/20/23 12:19> - Plan Pt seen and examined. I agree with the note by the SENIOR ACCOUNTING MANAGER. <Cammy Whitmore - Last Filed: 04/30/23 18:13>
[2023-04-20] MEDS: NA CHLORIDE 0.9% 1,000 ML IV SCH ×2 (14:21→20:35)
[2023-04-20] MEDS ORDERED: MAGNESIUM SULFATE 1 gm IVPB 1 GM/100 ML BAG IV ONE (19:01)
[2023-04-21] MEDS: IPRATROPIUM BROM 0.5MG/2.5ML NEB SCH ×4 (02:28→20:55)
[2023-04-21] MEDS: MORPHINE 4 MG/ML SYR IV PRN ×3 (04:11→21:41)
[2023-04-21] MEDS: NA CHLORIDE 0.9% 1,000 ML IV SCH ×2 (04:11→19:09)
[2023-04-21 08:06] LABS: Absolute Lymphocytes (CBC) 0.6 K/uL (0.7-4.9); Hematocrit 36.9 % (39.6-49.0); Lymphocytes % 3.8 % (15.3-44.8); MPV 8.1 fL (7.6-11.3); Platelets 289 thou/uL (152-406); RBC Red Blood Cell Count 4.02 M/uL (4.33-5.43)
[2023-04-21 08:20] LABS: Magnesium 1.8 mg/dL (1.6-2.4); Phosphorus 2.5 mg/dL (2.5-4.9); Potassium 4.1 mEq/L (3.5-5.1)
[2023-04-21] MEDS: ENOXAPARIN 40 MG/0.4 ML SQ SCH (09:00)
[2023-04-21] MEDS: FUROSEMIDE 20 MG/ 2ML VIAL IV SCH ×2 (09:21→16:58)
[2023-04-21] MEDS: CEFTRIAXONE 1,000 MG in NA CHLORIDE 0.9% 50 ML IVPB SCH (09:22)
[2023-04-21] MEDS: POTASSIUM CL SA 10 MEQ TAB PO SCH ×2 (09:23→20:29)
[2023-04-21] MEDS: VANCOMYCIN 1.5 GM in NA CHLORIDE 0.9% 500 ML IVPB SCH ×2 (10:15→21:41)
--- NOTE | 2023-04-21 11:53 | P.PN ---
Subjective Date of Service: 04/21/23 Chief Complaint: Cellulitis of right lower limb, cough Subjective: No new changes, Improving, Doing well Patient is alert and orientedx3 Improving Denies SOB or Denies chest pain <Walter Finnegan - Last Filed: 04/21/23 11:51> Date of Service: 04/30/23 <Cammy Whitmore - Last Filed: 04/30/23 15:08> Review of Systems 10-point ROS is otherwise unremarkable <Walter Finnegan - Last Filed: 04/21/23 11:51> Physical Examination - Vital Signs Temperature: 97.0 F Blood Pressure: 107/63 Pulse: 87 Respirations: 16 Pulse Ox (%): 96 - Physical Exam General: Alert, Oriented x3 HEENT: Atraumatic Neck: Supple, 2+ carotid pulse no bruit Respiratory: Clear to auscultation bilaterally, Normal air movement Cardiovascular: No edema, Normal pulses Capillary refill: <2 Seconds Gastrointestinal: Normal bowel sounds, Soft and benign Musculoskeletal: No clubbing, No swelling Integumentary: Other (healing sores on the lower extremities) Neurological: Normal speech, Normal tone, Normal reflexes 2+ <Walter Finnegan - Last Filed: 04/21/23 11:51> Assessment And Plan - Current Problems (Diagnosis) (1) COPD (chronic obstructive pulmonary disease) Status: Chronic Plan: Bronchodilators as needed Oxygen 2 L/min via nasal cannula to keep the oxygen saturation over 92, IV antibiotics started Will continue to monitor CXR ordered Qualifiers: COPD type: chronic bronchitis (2) Lower extremity cellulitis Status: Acute Plan: Multiple wounds of different stages of healing on both lower extremities Started on antibiotics Will continue to monitor Analgesics as ordered Wound care consulted Dr. Morales (3) Cellulitis of lower leg Status: Acute (4) Chronic back pain Status: Acute Plan: Chronic, uncontrolled Analgesics ordered as needed Fall precautions Qualifiers: Back pain location: low back pain Back pain laterality: bilateral (5) Hyponatremia Status: Acute Plan: Sodium level improving NA 129 today. patient is alert and oriented x 3. Continue to monitor. We will continue to monitor the sodium Close monitoring (6) Hypokalemia Status: Acute Plan: Serum potassium 3.5 will replace the potassium and recheck - Plan * CODE STATUSDNR * Dietregular * DVT prophylaxisLovenox Discharge Plan: Home Plan to discharge in: 24 Hours - Code Status/Comfort Care Code Status Assessed: Yes (DNR) Code Status: Do Not Attempt Resuscitat Physician Review: Patient Assessed, Agree with Above Assessment and Plan Critical Care: No Time Spent Managing PTS Care (In Minutes): 35 (MINUTES) <Walter Finnegan - Last Filed: 04/21/23 11:51> - Plan Pt seen and examined. I agree with the note by the CATAPULT AND ARRESTING GEAR OFFICER <Cammy Whitmore - Last Filed: 04/30/23 15:08>
[2023-04-22] MEDS: MORPHINE 4 MG/ML SYR IV PRN ×2 (01:21→06:06)
[2023-04-22] MEDS: IPRATROPIUM BROM 0.5MG/2.5ML NEB SCH ×4 (02:22→21:57)
[2023-04-22 03:58] LABS: Absolute Lymphocytes (CBC) 0.6 K/uL (0.7-4.9); Lymphocytes % 3.9 % (15.3-44.8); MCV 92.8 fL (80-100); MPV 8.9 fL (7.6-11.3); Platelets 306 thou/uL (152-406); RBC Red Blood Cell Count 3.98 M/uL (4.33-5.43)
[2023-04-22 04:04] LABS: Magnesium 1.7 mg/dL (1.6-2.4); Potassium 3.9 mEq/L (3.5-5.1)
[2023-04-22] MEDS ORDERED: MAGNESIUM SULFATE 1 gm IVPB 1 GM/100 ML BAG IV ONE (06:00)
--- NOTE | 2023-04-22 09:04 | P.PN ---
Subjective Date of Service: 04/22/23 Chief Complaint: Cellulitis of right lower limb, cough patient lives at home, plan for SNF, [facility], is being treated IV abx for cellulitis patient reports "wants to " will discuss hospice options - Physical Exam General: Alert, Oriented x3 HEENT: Atraumatic Neck: Supple, 2+ carotid pulse no bruit Respiratory: Clear to auscultation bilaterally, Normal air movement Cardiovascular: No edema, Normal pulses Capillary refill: <2 Seconds Gastrointestinal: Normal bowel sounds, Soft and benign Musculoskeletal: No clubbing, No swelling Integumentary: stage II buttock, Other (healing sores on the lower extremities) Neurological: Normal speech, Normal tone, Normal reflexes 2+ Review of Systems per HPI Physical Examination - Vital Signs Temperature: 96.9 F Blood Pressure: 138/73 Pulse: 95 Respirations: 15 Pulse Ox (%): 97 Assessment And Plan - Plan Assessment plan Current Problems (Diagnosis) Lower extremity cellulitis Current Visit: Yes Status: Acute Plan: Multiple wounds of different stages of healing on both lower extremities Started on antibiotics vancomycin, ceftriaxone, changed cefepime 2gm daily Will continue to monitor Analgesics as ordered Hyponatremia Current Visit: Yes Status: Acute Plan: Sodium level improving NA 129 today. patient is alert and oriented x 3. Continue to monitor. We will continue to monitor the sodium Close monitoring Hypokalemia improved, Current Visit: Yes Status: Acute Plan: Serum potassium 3.5 will replace the potassium and recheck, rpl prn COPD (chronic obstructive pulmonary disease) Current Visit: Yes Status: Chronic Plan: Bronchodilators as needed Oxygen 2 L/min via nasal cannula to keep the oxygen saturation over 92, IV antibiotics started Will continue to monitor CXR ordered Qualifiers: COPD type: chronic bronchitis Chronic back pain Current Visit: Yes Status: Acute Resume appropriate home meds Full code Diet cardiac DVT Discharge plan: long term facility [facility] pending authorization Discharge Plan: Group Home - Code Status/Comfort Care Code Status: Full Code Physician Review: Patient Assessed, Agree with Above Assessment and Plan Critical Care: No Time Spent Managing PTS Care (In Minutes): 35
[2023-04-22] MEDS: POTASSIUM CL SA 10 MEQ TAB PO SCH ×2 (09:23→20:22)
[2023-04-22] MEDS: FUROSEMIDE 20 MG/ 2ML VIAL IV SCH ×2 (09:23→16:28)
[2023-04-22] MEDS: ENOXAPARIN 40 MG/0.4 ML SQ SCH (09:23)
[2023-04-22] MEDS: CEFTRIAXONE 1,000 MG in NA CHLORIDE 0.9% 50 ML IVPB SCH (09:24)
[2023-04-22] MEDS: CEFEPIME 2 GM in NA CHLORIDE 0.9% 100 ML IV SCH ×2 (09:28→20:21)
[2023-04-22] MEDS: VANCOMYCIN 1.5 GM in NA CHLORIDE 0.9% 500 ML IVPB SCH ×2 (10:08→20:22)
[2023-04-22] MEDS: HYDROMORPHONE HCL 0.5 MG/0.5 ML INJ IV PRN ×3 (13:52→23:16)
[2023-04-22] MEDS: NA CHLORIDE 0.9% 1,000 ML IV SCH ×2 (16:27)
[2023-04-23] MEDS: HYDROMORPHONE HCL 0.5 MG/0.5 ML INJ IV PRN ×2 (02:54→09:37)
[2023-04-23] MEDS: NA CHLORIDE 0.9% 1,000 ML IV SCH (03:31)
[2023-04-23] MEDS: IPRATROPIUM BROM 0.5MG/2.5ML NEB SCH ×4 (03:45→21:37)
[2023-04-23] MEDS: ALBUTEROL 2.5 MG/3 ML NEB SOL NEB PRN (03:45)
--- NOTE | 2023-04-23 07:08 | P.PN ---
Subjective Date of Service: 04/23/23 Chief Complaint: Cellulitis of right lower limb, cough Pain better controlled with prn analgesics patient lives at home, plan for SNF, [facility], is being treated IV abx for cellulitis patient reports "wants to " will discuss hospice options - Physical Exam General: Alert, Oriented x3 HEENT: Atraumatic Neck: Supple, 2+ carotid pulse no bruit Respiratory: Clear to auscultation bilaterally, Normal air movement Cardiovascular: No edema, Normal pulses Capillary refill: <2 Seconds Gastrointestinal: Normal bowel sounds, Soft and benign Musculoskeletal: No clubbing, No swelling Integumentary: stage II buttock, Other (healing sores on the lower extremities) Neurological: Normal speech, Normal tone, Normal reflexes 2+ Review of Systems per HPI Physical Examination - Vital Signs Temperature: 97.1 F Blood Pressure: 134/85 Pulse: 90 Respirations: 18 Pulse Ox (%): 98 Assessment And Plan - Plan Assessment plan Current Problems (Diagnosis) Lower extremity cellulitis acute on chronic Current Visit: Yes Status: Acute Plan: Multiple wounds of different stages of healing on both lower extremities Started on antibiotics vancomycin, ceftriaxone, changed cefepime 2gm daily Will continue to monitor Analgesics as ordered stage II sacral ulcer present on admission acute on chronic Pressure off loading, center consult chronic pain acute on chronic PRN diladid 0.5 q5 prn PO Lortab added, PRN stool softeners Hyponatremia Current Visit: Yes Status: Acute Plan: Sodium level improving NA 129 today. patient is alert and oriented x 3. Continue to monitor. We will continue to monitor the sodium Close monitoring Hypokalemia improved, Current Visit: Yes Status: Acute Plan: Serum potassium 3.5 will replace the potassium and recheck, rpl prn COPD (chronic obstructive pulmonary disease) Current Visit: Yes Status: Chronic Plan: Bronchodilators as needed Oxygen 2 L/min via nasal cannula to keep the oxygen saturation over 92, IV antibiotics started Will continue to monitor CXR ordered Qualifiers: COPD type: chronic bronchitis Chronic back pain Current Visit: Yes Status: Acute Resume appropriate home meds Full code Diet cardiac DVT Discharge plan: retirement facility [facility] pending authorization Discharge Plan: Long Term - Code Status/Comfort Care Code Status: Do Not Attempt Resuscitat Physician Review: Patient Assessed, Agree with Above Assessment and Plan Critical Care: No Time Spent Managing PTS Care (In Minutes): 35
[2023-04-23 07:54] LABS: Absolute Lymphocytes (CBC) 0.6 K/uL (0.7-4.9); Hematocrit 35.2 % (39.6-49.0); Lymphocytes % 5.7 % (15.3-44.8); MCV 93.2 fL (80-100); MPV 7.8 fL (7.6-11.3); Platelets 294 thou/uL (152-406); RBC Red Blood Cell Count 3.78 M/uL (4.33-5.43)
[2023-04-23 08:13] LABS: Magnesium 1.7 mg/dL (1.6-2.4)
[2023-04-23] MEDS: VANCOMYCIN 1.5 GM in NA CHLORIDE 0.9% 500 ML IVPB SCH (09:00)
[2023-04-23] MEDS: ENOXAPARIN 40 MG/0.4 ML SQ SCH (09:00)
[2023-04-23] MEDS: CEFEPIME 2 GM in NA CHLORIDE 0.9% 100 ML IV SCH ×2 (09:04→20:21)
[2023-04-23] MEDS: POTASSIUM CL SA 10 MEQ TAB PO SCH ×2 (09:08→20:21)
[2023-04-23] MEDS: FUROSEMIDE 20 MG/ 2ML VIAL IV SCH ×2 (09:09→17:34)
[2023-04-23] MEDS ORDERED: DOCUSATE NA/SENNA CONC 1 TAB PO PRN (10:53)
[2023-04-23] MEDS ORDERED: FUROSEMIDE 40 MG/4 ML VIAL IV ONE (11:02)
[2023-04-23] MEDS: HYDROCODONE/APAP 7.5/325 MG TAB PO PRN ×2 (14:00→20:22)
[2023-04-24] MEDS: HYDROMORPHONE HCL 0.5 MG/0.5 ML INJ IV PRN ×3 (00:12→16:39)
[2023-04-24 03:33] LABS: Absolute Lymphocytes (CBC) 0.7 K/uL (0.7-4.9); Hematocrit 33.7 % (39.6-49.0); Lymphocytes % 5.2 % (15.3-44.8); MCV 92.2 fL (80-100); MPV 8.3 fL (7.6-11.3); Platelets 332 thou/uL (152-406); RBC Red Blood Cell Count 3.66 M/uL (4.33-5.43)
[2023-04-24] MEDS: IPRATROPIUM BROM 0.5MG/2.5ML NEB SCH ×4 (04:29→19:32)
[2023-04-24] MEDS: HYDROCODONE/APAP 7.5/325 MG TAB PO PRN ×3 (05:06→23:45)
--- NOTE | 2023-04-24 06:58 | P.PN ---
Subjective Date of Service: 04/24/23 Chief Complaint: Cellulitis of right lower limb, cough Pain better controlled with prn analgesics patient lives at home, plan for SNF, [facility], is being treated IV abx for cellulitis patient reports "wants to " will discuss hospice options - Physical Exam General: Alert, Oriented x3 HEENT: Atraumatic Neck: Supple, 2+ carotid pulse no bruit Respiratory: Clear to auscultation bilaterally, Normal air movement Cardiovascular: No edema, Normal pulses Capillary refill: <2 Seconds Gastrointestinal: Normal bowel sounds, Soft and benign Musculoskeletal: No clubbing, No swelling Integumentary: stage II buttock, Other (healing sores on the lower extremities) Neurological: Normal speech, Normal tone, Normal reflexes 2+ Physical Examination - Vital Signs Temperature: 97.7 F Blood Pressure: 122/73 Pulse: 90 Respirations: 18 Pulse Ox (%): 95 Assessment And Plan - Plan Assessment plan Current Problems (Diagnosis) Lower extremity cellulitis acute on chronic Current Visit: Yes Status: Acute Plan: Multiple wounds of different stages of healing on both lower extremities Started on antibiotics vancomycin, ceftriaxone, changed cefepime 2gm daily Will continue to monitor Analgesics as ordered stage II sacral ulcer present on admission acute on chronic Pressure off loading, center consult chronic pain acute on chronic PRN diladid 0.5 q5 prn PO Lortab added, PRN stool softeners Hyponatremia Current Visit: Yes Status: Acute Plan: Sodium level improving NA 129 today. patient is alert and oriented x 3. Continue to monitor. We will continue to monitor the sodium Close monitoring Hypokalemia improved, Current Visit: Yes Status: Acute Plan: Serum potassium 3.5 will replace the potassium and recheck, rpl prn COPD (chronic obstructive pulmonary disease) Current Visit: Yes Status: Chronic Plan: Bronchodilators as needed Oxygen 2 L/min via nasal cannula to keep the oxygen saturation over 92, IV antibiotics started Will continue to monitor CXR ordered Qualifiers: COPD type: chronic bronchitis Chronic back pain Current Visit: Yes Status: Acute Resume appropriate home meds Full code Diet cardiac DVT Discharge plan: [facility] facility [facility] pending authorization Physician Review: Patient Assessed, Agree with Above Assessment and Plan
[2023-04-24] MEDS: ENOXAPARIN 40 MG/0.4 ML SQ SCH (09:15)
[2023-04-24] MEDS: FUROSEMIDE 20 MG/ 2ML VIAL IV SCH ×2 (09:15→16:37)
[2023-04-24] MEDS: POTASSIUM CL SA 10 MEQ TAB PO SCH ×2 (09:15→20:58)
[2023-04-24] MEDS: CEFEPIME 2 GM in NA CHLORIDE 0.9% 100 ML IV SCH ×2 (09:16→20:57)
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
[2023-04-24] MEDS: JUVEN PACKET PO SCH (20:59)
[2023-04-24] MEDS: ENSURE ENLIVE 237 ML CAN PO SCH (20:59)
[2023-04-25] MEDS: IPRATROPIUM BROM 0.5MG/2.5ML NEB SCH ×3 (01:18→13:32)
[2023-04-25] MEDS: CEFEPIME 2 GM in NA CHLORIDE 0.9% 100 ML IV SCH (08:32)
[2023-04-25] MEDS: FUROSEMIDE 20 MG/ 2ML VIAL IV SCH ×2 (08:33→16:53)
[2023-04-25] MEDS: HYDROCODONE/APAP 7.5/325 MG TAB PO PRN (08:35)
[2023-04-25] MEDS: ENSURE ENLIVE 237 ML CAN PO SCH (08:36)
[2023-04-25] MEDS: ENOXAPARIN 40 MG/0.4 ML SQ SCH (08:36)
[2023-04-25] MEDS: JUVEN PACKET PO SCH (08:36)
[2023-04-25] MEDS: POTASSIUM CL SA 10 MEQ TAB PO SCH (08:36)
[2023-04-25 09:48] VITALS: O2SAT 93
--- NOTE | 2023-04-25 13:34 | EKG ---
Test Date: 2023-04-21 Test Time: 05:01:09 Training Executive: SHANIKA MEASUREMENT RESULTS: Intervals: Rate: 117 UT: QRSD: 108 QT: 276 QTc: 385 [place]: P: UT: QRS: -81 T: 76 INTERPRETIVE STATEMENTS: Atrial fibrillation with rapid ventricular response Left axis deviation Pulmonary disease pattern Inferior infarct, age undetermined Abnormal ECG Compared to ECG 04/17/2023 13:06:15 Left-axis deviation now present Myocardial infarct finding now present Sinus rhythm no longer present Electronically Signed On 04-25-23 13:25:30 IMAGING ADMINISTRATOR by Lonnie Zelaya
--- NOTE | 2023-04-25 15:35 | RAD REPORT ---
EXAM DESCRIPTION: RAD - Abdomen Single View - 04/25/2023 2:55 pm CLINICAL HISTORY: pain and constipation COMPARISON: No comparisons FINDINGS: Nonobstructive bowel gas pattern. Nonspecific gaseous distention of the small bowel and co jamie. Mild formed stool burden. No acute osseous abnormality.Visualized lungs are unremarkable.No abno rmal calcifications. Intramedullary afua and cephalomedullary screw in the left femur. IMPRESSION: Nonobstructive, nonspecific bowel gas pattern. Formed stool burden is low.
[2023-04-25 16:54] VITALS: BP 98/68; TEMP 98.5
== END 2023-04-25 19:36 | disposition hospice, inpatient (51) | DRG 603 ==
LOC: ER 12:20 → ERHOLD 15:43 → 2ND 04-18 12:40
PROVIDERS: ADMIT Hospitalist; ATTEND Internal Medicine
DX: L03.115 Cellulitis of right lower limb (principal); E87.1 Hypo-osmolality and hyponatremia; J44.1 Chronic obstructive pulmonary disease with (acute) exacerbation; G81.94 Hemiplegia, unspecified affecting left nondominant side; L89.152 Pressure ulcer of sacral region, stage 2; I10 Essential (primary) hypertension; E87.6 Hypokalemia; F17.210 Nicotine dependence, cigarettes, uncomplicated; M54.50 Low back pain, unspecified; G89.29 Other chronic pain; Z66 Do not resuscitate; R53.1 Weakness; Z99.3 Dependence on wheelchair; Z51.5 Encounter for palliative care
CPT/HCPCS: 36415; 51702; 70450; 70496; 70498; 70551; 71045; 74018; 80048; 80053; 80202; 81001; 82565; 82947; 83605; 83735; 84100; 84132; 84439; 84443; 84484; 85025; 87040; 87086; 87088; 93005; 94640; 94760; 96365; 96366; 97110; 97161; 99285; J0692; J0696; J1170; J1650; J1940; J3475; J3480; J7030; J7040; J7050; J7613; J7644; Q9967